=== PATIENT | male | born 1990 | race Two or more races ===

== ENCOUNTER 2019-06-19 11:06 | Emergency (ER) | payer OTHER ==
[~2019-06-19] VITALS: Ht 167.6 cm; Wt 60.8 kg
[2019-06-19 11:16] VITALS: BP 132/84
--- NOTE | 2019-06-19 11:20 | NUR ---
AT BEDSIDE FOR EVAL.
--- NOTE | 2019-06-19 11:21 | NUR ---
TECH AT BEDSIDE FOR WOUND CLEANING.
[2019-06-19] MEDS ORDERED: LIDOCAINE /MPF 1% VIAL 5 ML VIAL ONE (11:27)
[2019-06-19] MEDS ORDERED: TDAP [DIPH/PERTUSSIS/TET] 0.5 ML VIAL IM ONE ×2 (11:29→11:30)
[2019-06-19] MEDS ORDERED: ACETAMINOPHEN ES 500 MG TABLET PO ONE (11:30)
--- NOTE | 2019-06-19 11:40 | NUR ---
SUTURING DONE BY PA STUDENT.
--- NOTE | 2019-06-19 12:34 | NUR ---
Patient discharged to home in stable condition. Written and verbal after care instructions given. Patient verbalizes understanding of instruction.
== END 2019-06-19 12:36 | disposition home or self-care (01) ==
LOC: ER 11:06
DX: S71.111A Laceration without foreign body, right thigh, initial encounter (principal); W26.0XXA Contact with knife, initial encounter; Y93.89 Activity, other specified; Y92.89 Other specified places as the place of occurrence of the external cause; Y99.8 Other external cause status
CPT/HCPCS: 12001; 90471; 90715; 99283; A6403; J3490